=== PATIENT | male | born 1985 | race African-American/Black ===

== ENCOUNTER 2016-08-28 02:28 | Emergency (ER) | payer OTHER ==
[~2016-08-28] VITALS: Ht 190.5 cm; Wt 140.6 kg
[2016-08-28 02:37] VITALS: BP 144/79
--- NOTE | 2016-08-28 03:14 | ED GENERAL ADULT ---
See Addendum History of Present Illness General Chief Complaint: General Adult Stated Complaint: QUEZADA,FEVER,CP,ABDM PAIN Source: patient Exam Limitations: no limitations Vital Signs & Intake/Output Vital Signs & Intake/Output Vital Signs Date Time Temp Pulse Resp B/P Pulse O2 O2 Flow FiO2 Ox Delivery Rate 08/28 0406 100.8 08/28 0345 98 Room Air 08/28 0335 102.3 08/28 0335 102.3 08/28 0245 102.2 08/28 0237 102.2 85 18 144/79 98 Room Air Allergies Coded Allergies: NO KNOWN ALLERGIES (08/28/16) Reconcile Medications No Known Home Medications Triage Note: TRIAGE: PATIENT TO ER FROM HOME STATES CP X FEW WEEKS, FEVERS AT HOME, +COUGH W/ PHELEM X 2-3 DAYS, REPORTS SLIGHT SOB X 2 WEEKS, DENIES N/V/D. PATIENT REPORTS INTERMITTENT PAIN TO LUQ, INCREASED W/ SITTING AND STANDING. Triage Nurses Notes Reviewed? yes HPI: Patient presents for evaluation of a fever muscle aches headache chest pain and abdominal pain that began gradually about one week ago. Symptoms became worse and severe tonight including shaking chills. Patient's has been sick recently with cold symptoms as well. There has been no associated rashes, vomiting, diarrhea, dysuria or recent travel. Nothing seems to make him feel better at this point. Past History Travel History Traveled to [place] past 21 day No Medical History Any Pertinent Medical History? 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 No Review of Systems Review of Systems Constitutional: Reports: see HPI. EENTM: Reports: see HPI. Respiratory: Reports: no symptoms. Cardiovascular: Reports: no symptoms. GI: Reports: no symptoms. Genitourinary: Reports: no symptoms. Musculoskeletal: Reports: no symptoms. Skin: Reports: no symptoms. Neurological/Psychological: Reports: no symptoms. Hematologic/Endocrine: Reports: no symptoms. Immunologic/Allergic: Reports: no symptoms. All Other Systems: Reviewed and Negative Physical Exam Physical Exam General Appearance: see below Comments: Gen.: Well-nourished, well-developed, no acute respiratory distress. Head: Normocephalic, atraumatic. Eyes: Normal inspection bilaterally Ears: Normal inspection bilaterally Nose: Normal inspection Throat/mouth : Moist mucosa, no oropharyngeal erythema exudates or soft tissue swelling, uvula midline Neck: Supple, full range of motion, no goiter, no stridor Heart: Regular rate and rhythm, no murmurs rubs or gallops Lungs: Clear to auscultation bilaterally with normal air entry Chest: Nontender Back: Normal range of motion Abdomen: Soft, left upper and left lower quadrant abdominal tenderness without rebound or guarding, nondistended, normal bowel sounds Extremities: Normal range of motion grossly, equal radial pulses, no cyanosis clubbing or edema Neurologic: Cranial nerves grossly intact, speech is clear Skin: warm and dry Psychiatric: Calm, cooperative, no apparent delusions or hallucinations Lymphatic: No cervical or supraclavicular lymphadenopathy Core Measures ACS in differential dx? No CVA/TIA Diagnosis: No Severe Sepsis Present: No Septic Shock Present: No Progress Differential Diagnoses I considered the following diagnoses in my evaluation of the patient: Viral syndrome, pharyngitis, pneumonia, gastroenteritis Plan of Care: Orders Procedure Date/time Status EKG 08/28 0230 Active Initial ED EKG: none Comments: 08/28/2016 5:01:13 AM this is my second reevaluation of amanda. He is beginning to feel better and does appear more comfortable although still feels considerably under the weather. Plan symptomatic care for viral syndrome. Departure Departure Disposition: HOME OR SELF CARE Condition: Stable Clinical Impression Primary Impression: Viral syndrome Referrals: UNKNOWN (PCP/Family) Referred to [facility] as new patient No Additional Instructions: Continue ibuprofen 600 mg every 6 hours as needed for fever or muscle aches or chills. Robitussin-DM as needed for cough or cold symptoms. Do not work over the next 48 hours. Maintained a good fluid intake. Rest. Consider ZMA. Return if any concerns or sudden worsening. Thank you for choosing the [facility] for your care. It was a pleasure to serve you today. Gene Russell M.D. [facility] Departure Forms: Customer Survey General Discharge Information Prescriptions: Current Visit Scripts No Known Home Medications Critical Care Note Critical Care Note Critical Care Time: non-applicable
[2016-08-28] MEDS ORDERED: BROMFED DM COU118 M1 PO (05:37)
== END 2016-08-28 05:36 ==
LOC: ERH 02:28
DX: B34.9 Viral infection, unspecified (principal); R07.9 Chest pain, unspecified
CPT/HCPCS: 93005; 93010